=== PATIENT | male | born 1995 | race Caucasian/White ===

== ENCOUNTER 2024-04-12 09:27 | Emergency (ER) | payer OTHER, SELFPAY ==
[2024-04-12 09:37] VITALS: BP 118/88
--- NOTE | 2024-04-12 09:52 | ED.GENMED ---
History of Present Illness
General
Chief Complaint: Dizziness
Source: patient
Time Seen by Provider: 04/12/24 09:40
History of Present Illness
History of Present Illness:
28yoM with no significant past medical history presenting with his mother for evaluation of dizziness. Patient woke up this morning around 7am feeling dizzy and nauseous. He describes the dizziness as feeling 'disoriented in the head' and he feels
that his 'depth perception is off.' He went to the bathroom and had several episodes of vomiting. He then started to have a pressure sensation in the bilateral ears, head, and neck. He is also having decreased hearing and a clogged sensation in his
ears. He tried to take a hot shower without relief so came to the ED. His dizziness has subsided currently. He denies any chest pain or shortness of breath. No head trauma. Of note, patient has been using nitrous oxide over the past week. Last use
was yesterday evening several hours before his symptoms began.
Phy Exam
General Physical Exam
General Presentation: well appearing and no apparent distress
General age: appears stated age
General Skin: warm and dry
General Habitus: normal
General Mental: alert
ENT Exam
Additional ENT: +R TM with erythema and bulging
Eye Exam
Eye Exam: PERRL
Cardiovascular Exam
Cardiovascular Exam: regular rate/rhythm, no edema and no murmur
Pulmonary Exam
Pulmonary Exam: lungs clear, no respiratory distress, no crackles and no wheezing
Neurological Exam
Neurological Exam: alert and no motor deficits
Stephen Coma Scale
Eye Opening: Spontaneous
Verbal Response: Oriented
Motor Response: Obeys Commands
GCS Total Score: 15
Skin Exam
Skin Exam: normal color and warm/dry
Psychiatric Exam
Psychiatric Exam: normal mood/affect
Course
Orders/Labs/Results
Orders:
Orders
04/12/24 09:51
Electrocardiogram (*1) Urgent
Reason for Study: Vertigo / Dizzy
EKG- Treatment ONCE
0.9% Sodium Chloride 1000 ml [Nss] 1,000 ml IV BOLUS
04/12/24 09:52
CT Head W/o Iv Contrast Urgent
Comment:
Reason For Exam: Acute dizziness
04/12/24 10:01
Complete Blood Count/With Diff Urgent
Comprehensive Metabolic Panel Urgent
04/12/24 11:19
Dexamethasone [Decadron] 10 mg PO NOW STA
Abnormal Lab Results
04/12/24
10:01
RBC 4.67 L 10^6/uL
(4.70-6.10)
Absolute Lymphs (auto) 0.8 L 10^3/uL
(1.2-3.4)
Absolute Monos (auto) 0.8 H 10^3/uL
(0.1-0.6)
Lymphocytes % 13.6 L %
(20.5-51.1)
Monocytes % 12.2 H %
(1.7-9.3)
Total Bilirubin 1.7 H mg/dl
(0.2-1.3)
04/12/24 10:01
04/12/24 10:01
Vital Signs
Initial and Last Documented VS:
Initial Vital Signs
Temp Pulse Resp BP Pulse Ox
98.7 F 84 16 118/88 98
04/12/24 09:37 04/12/24 09:37 04/12/24 09:37 04/12/24 09:37 04/12/24 09:37
Last Documented Vital Signs
Temp Pulse Resp BP Pulse Ox
97.5 F 75 19 124/83 100
04/12/24 10:56 04/12/24 11:30 04/12/24 11:30 04/12/24 11:00 04/12/24 11:30
MDM/Problems Addressed
Differential Diagnosis Includes:
28yoM here with head/bilateral ear pressure that started this morning. Had dizziness and vomiting initially which has since resolved. Vitals are stable. He is well appearing in no distress. Right tympanic membrane is erythematous and bulging.
Remainder of exam is reassuring. Differential diagnosis includes but is not limited to: otitis media, eustachian tube dysfunction, sinusitis, subarachnoid hemorrhage, migraine
Initial ED plan: Check CBC, CMP, EKG, and CT head. IV fluid bolus.
*EKG
Interpreted by ED Provider?: Yes
EKG Intrepretation Date: 04/12/24
Heart Rate: 78
Rate: normal
Rhythm: sinus
[place]: normal axis
Interval: normal interval
QRS Pattern: normal QRS
Ischemia: no ischemia
*Critical Care Note
Total Time (30-74mins, 75-104mins- exclusive of procedures): Not Applicable
Update Note
Update Note:
Labs overall unremarkable including normal electrolytes and glucose. EKG shows NSR without ectopy. CT head is negative for acute findings. Vitals remain stable. No indication for admission at this time. Will cover with Augmentin for AOM. Dose of
Decadron also given. Supportive care discussed. Advised f/u with PCP and ED return precautions discussed. He was discharged in stable condition.
ED Attending Note
-
Portions of this chart may have been created with voice recognition software.� Occasional wrong word or��sound alike� substitutions may have occurred due to the inherent limitations of voice recognition software.
Discharge Plan
Departure
Patient Disposition: Home (Routine Discharge)
Date of Disposition: 04/12/24
Time of Disposition: 11:20
Patient with high blood pressure during this ER visit?: No
Discharge Problem:
Pressure in head, Acute right otitis media
Instructions: Dizziness
Prescriptions:
New
amoxicillin-pot clavulanate 875-125 mg tablet
1 tab PO BID Qty: 14 0RF
Referrals:
UNKNOWN - PT DOES,NOT KNOW [Family Provider] -
Activity Restrictions/Additional Instructions:
Take antibiotics as prescribed. Use Flonase nasal spray daily. You may also try Sudafed.
Please follow-up with your family doctor. Return to the ER with any new or worsening symptoms.
Interventions
Interventions:
*Risk Screen - Suicide Last Done: 04/12/24 10:11
*General Assessment Last Done: 04/12/24 10:11
*Neglect/Abuse Screening Last Done: 04/12/24 10:11
ED- Fall Risk Assessment Last Done: 04/12/24 10:11
*ED COVID-19 Vaccine History Last Done: 04/12/24 10:11
*Nursing Disposition Last Done: 04/12/24 11:35
ED- Neurological Assessment Last Done: 04/12/24 10:11
ED- Cardiac Assessment Last Done: 04/12/24 10:11
ED Swallowing Screen Last Done: 04/12/24 10:11
Discharge Date and Time
Discharge Date/Time: 04/12/24 11:35
Print Language: ALBAN[place]
[2024-04-12 10:01] VITALS: BP 139/91
[2024-04-12 10:11] VITALS: BMI 24.3
[2024-04-12 10:15] LABS: % Basophils 0.8 % (0-2); % Eosinophils 3.6 % (0-6); % Immature Granulocytes 0.3 % (0-0.5); % Lymphocytes 13.6 % (20.5-51.1); % Monocytes 12.2 % (1.7-9.3); % Neutrophils 69.5 % (42.2-75.2); Absolute Basophils 0.1 10^3/uL (0-0.2); Absolute Eosinophils 0.2 10^3/uL (0-0.7); Absolute Lymphocytes 0.8 10^3/uL (1.2-3.4); Absolute Monocytes 0.8 10^3/uL (0.1-0.6); Absolute Neutrophils 4.3 10^3/uL (1.4-6.5); Hematocrit 40.5 % (39.0-52.0); Hemoglobin 14.5 g/dL (13.0-18.0); Mean Corp Hgb Conc. 35.8 g/dL (33.0-37.0); Mean Corpuscular Volume 86.7 fL (80.0-94.0); Mean Platelet Volume 9.1 fL (7.4-10.4); Nucleated Red Blood Cells % 0 % (-); Platelet Count 273 10^3/uL (130-400); Red Blood Cell Count 4.67 10^6/uL (4.70-6.10); Red Cell Dist. Width 12.8 % (11.5-14.5); White Blood Cell Count 6.2 10^3/uL (4.8-10.8)
[2024-04-12 10:28] LABS: ALT (SGPT) 24 U/L (0-50); AST (SGOT) 30 U/L (17-59); Albumin 4.7 g/dl (3.5-5.0); Alkaline Phosphatase 50 U/L (38-126); Blood Urea Nitrogen 19 mg/dl (9-20); Calcium 9.8 mg/dl (8.4-10.2); Carbon Dioxide 27 mmol/L (22-30); Chloride 105 mmol/L (98-107); Estimated Creatinine Clearance 107 ml/min; Glucose 90 mg/dl (70-99); Potassium 4.4 mmol/L (3.5-5.1); Sodium 141 mmol/L (135-145); Total Bilirubin 1.7 mg/dl (0.2-1.3); Total Protein 6.8 g/dl (6.3-8.2); eGFR > 60.00
[2024-04-12] MEDS: NSS 1000 IV (10:48)
[2024-04-12 10:49] VITALS: BP 121/90
[2024-04-12 10:56] VITALS: BP 121/90
[2024-04-12 11:00] VITALS: BP 124/83
[2024-04-12] MEDS: DECADRON 10 MG PO (11:29)
== END 2024-04-12 11:35 | disposition home or self-care (01) ==
LOC: EMR 09:27
PROVIDERS: Physician Assistant; EMERGENCY PHYSICIAN Emergency Medicine
DX: H66.91 Otitis media, unspecified, right ear (principal); R42 Dizziness and giddiness; R11.2 Nausea with vomiting, unspecified; R41.0 Disorientation, unspecified
CPT/HCPCS: 99284; 96360; 70450; 80053; 85025; 93005